=== PATIENT | female | born 1990 ===

== ENCOUNTER 2017-06-12 09:26 | Inpatient (IN) | payer OTHER ==
[~2017-06-12] VITALS: Ht 160 cm; Wt 62.6 kg
[2017-06-12] MEDS ORDERED: FOLIC ACID1 MG PO (10:57)
[2017-06-12] MEDS ORDERED: PRENATAL TABLE1 EAC1 PO (10:57)
== END 2017-06-14 12:15 | disposition home or self-care (01) | DRG 775 ==
LOC: OB/GYN 09:26 → LDR 09:26 → OB/GYN 13:14
PROC: 0HQ9XZZ Repair Perineum Skin, External Approach (ICD-10-PCS; principal; 2017-06-12)
PROC: 10E0XZZ Delivery of Products of Conception, External Approach (ICD-10-PCS; 2017-06-12)
PROC: 4A1HXCZ Monitoring of Products of Conception, Cardiac Rate, External Approach (ICD-10-PCS; 2017-06-12)
PROC: 4A033R1 Measurement of Arterial Saturation, Peripheral, Percutaneous Approach (ICD-10-PCS; 2017-06-12)
DX: O70.0 First degree perineal laceration during delivery (principal); O69.81X0 Labor and delivery complicated by cord around neck, without compression, not applicable or unspecified; Z3A.37 37 weeks gestation of pregnancy; Z37.0 Single live birth